=== PATIENT | female | born 1950 | race Caucasian/White ===

== ENCOUNTER 2018-08-22 07:16 | Day surgery (SDC) | payer OTHER ==
[~2018-08-22] VITALS: Ht 165.1 cm; Wt 85.9 kg
[~2018-08-22 07:16] MED LIST: AEC81 PO; LEVO112T4 PO; LISI1TAB11 PO; MULT-1203 PO; MV-M1TAB20 PO; SODIUM CHLORIDE 0.9% 1000ML 1,000 ML IV ONE
[2018-08-22 08:16] VITALS: BP 132/73
[2018-08-22] MEDS ORDERED: LIDOCAINE HCL 1% 20 ML VIAL ONE (09:29)
[2018-08-22] MEDS ORDERED: PROPOFOL 10 MG/ML 20ML VIAL IV ONE (09:30)
[2018-08-22 09:44] VITALS: BP 105/60
[2018-08-22 09:49] VITALS: BP 114/62
[2018-08-22 09:54] VITALS: BP 112/53
[2018-08-22 09:59] VITALS: BP 123/63
== END 2018-08-22 10:17 | disposition home or self-care (01) ==
LOC: DAH 07:16 → ENDO 07:16
PROVIDERS: ATTEND Internal Medicine Gastroenterology
DX: K29.50 Unspecified chronic gastritis without bleeding (principal); K21.0 Gastro-esophageal reflux disease with esophagitis; K44.9 Diaphragmatic hernia without obstruction or gangrene; K31.89 Other diseases of stomach and duodenum; I10 Essential (primary) hypertension; E03.9 Hypothyroidism, unspecified; D64.9 Anemia, unspecified; Z90.49 Acquired absence of other specified parts of digestive tract; Z98.890 Other specified postprocedural states; Z79.899 Other long term (current) drug therapy; Z68.32 Body mass index [BMI] 32.0-32.9, adult; K57.30 Diverticulosis of large intestine without perforation or abscess without bleeding; K64.0 First degree hemorrhoids; E66.01 Morbid (severe) obesity due to excess calories
CPT/HCPCS: 43239; 43249; 88305; A4606; J2704; J7030; 43235

== ENCOUNTER 2020-11-07 10:26 | Observation (INO) | payer OTHER ==
[~2020-11-07 10:26] MED LIST changes: -LISI1TAB11 PO; +LISI1TAB51 PO; -SODIUM CHLORIDE 0.9% 1000ML 1,000 ML IV ONE
[2020-11-07 11:17] LABS: BASOPHILS % (AUTO) 0.2 % (0.0-5.0); EOSINOPHILS % (AUTO) 0.9 % (0.0-8.0); HEMATOCRIT 38.2 % (36-48); LYMPHOCYTES % (AUTO) 18.6 % (21.0-51.0); MEAN CORPUSCULAR HEMOGLOBIN 25.4 pg (27.0-33.0); MEAN CORPUSCULAR HGB CONC 32.5 g/dL (32.0-36.0); MEAN CORPUSCULAR VOLUME 78.3 fL (79-99); MONOCYTES % (AUTO) 9.5 % (3.0-13.0); NEUTROPHILS % (AUTO) 70.6 % (40.0-77.0); PLATELET COUNT (AUTO) 264 K/uL (130-400); RED BLOOD CELL COUNT(AUTO) 4.88 MIL/uL (4.00-5.50); WHITE BLOOD COUNT (AUTO) 5.6 K/uL (4.8-10.8)
[2020-11-07 11:35] LABS: ALBUMIN 3.3 g/dL (3.5-5.0); BILIRUBIN,TOTAL 0.5 mg/dL (0.2-1.0); CREATININE 1.2 mg/dL (0.5-1.5); POTASSIUM 3.3 mmol/L (3.5-5.1); TOTAL PROTEIN, SERUM 7.4 g/dL (6.0-8.3)
[2020-11-07] MEDS ORDERED: DEXAMETHASONE SOD PHOSPHATE 10MG/ML 1ML VIAL ONE (12:14)
[2020-11-07 12:43] LABS: ABG BASE EXCESS 2.1 mmol/L (-2.0-3.0); ABG HCO3 26.1 mmol/L (21.0-28.0); ABG OXYGEN SATURATION 95.7 % (95.0-99.0); ABG PCO2 39 mmHg (32-45)
[2020-11-07] MEDS ORDERED: POTASSIUM CHLORIDE 20 MEQ ERTAB PO ONE (12:53)
[2020-11-07 13:23] LABS: CRP QUANTITATIVE 11.2 mg/L (0.00-9.0); MAGNESIUM 1.9 mg/dL (1.80-2.40)
[2020-11-07] MEDS ORDERED: GUAIFENESIN-DM 200/20 MG 10 ML PO PRN (13:30)
[2020-11-07] MEDS ORDERED: CEFTRIAXONE SODIUM 1 GM IVP SCH (13:30)
[2020-11-07] MEDS ORDERED: ERGOCALCIFEROL (VITAMIN D2) 50,000 UNIT CAPSULE PO SCH (13:30)
[2020-11-07] MEDS ORDERED: MAG HYDROX/AL HYDROX/SIMETH ES 30 ML SUSP UDCUP PO PRN (13:30)
[2020-11-07] MEDS ORDERED: POTASSIUM CHLORIDE 20 MEQ ERTAB PO SCH (13:30)
[2020-11-07] MEDS ORDERED: ONDANSETRON HCL 4 MG/2 ML VIAL IV PRN (13:30)
[2020-11-07] MEDS ORDERED: ERGOCALCIFEROL (VITAMIN D2) 50,000 UNIT CAPSULE ONE (14:12)
[2020-11-07] MEDS ORDERED: CEFTRIAXONE SODIUM 1 GM ONE (14:12)
[2020-11-07] MEDS ORDERED: PANT40TA55 PO (16:51)
[2020-11-07] MEDS ORDERED: APIX2.5T PO (16:51)
[2020-11-07] MEDS ORDERED: FAMOTIDINE 20MG TAB 20 MG TAB PO SCH (21:00)
[2020-11-07] MEDS ORDERED: DOXYCYCLINE HYCLATE 100 MG TABLET PO SCH (21:00)
[2020-11-08] MEDS ORDERED: LEVOTHYROXINE 112 MCG TABLET PO SCH (06:30)
[2020-11-08] MEDS ORDERED: ZINC SULFATE 220 CAPSULE PO SCH (09:00)
[2020-11-08] MEDS ORDERED: DEXAMETHASONE SOD PHOSPHATE 4 MG/ML 1ML VIAL IVP SCH (09:00)
[2020-11-08] MEDS ORDERED: EZETIMIBE 10 MG TAB PO SCH (09:00)
[2020-11-08] MEDS ORDERED: ASCORBIC ACID 500 MG TAB PO SCH (09:00)
[2020-11-08] MEDS ORDERED: ENOXAPARIN SODIUM 40 MG/0.4 ML SYRINGE SQ SCH (16:00)
== END 2020-11-07 17:22 | disposition home or self-care (01) ==
LOC: EDH 10:26 → EDHIP 12:46
PROVIDERS: ADMIT Internal Medicine; ATTEND Internal Medicine
DX: U07.1 COVID-19 (principal); J96.01 Acute respiratory failure with hypoxia; K52.9 Noninfective gastroenteritis and colitis, unspecified; D68.59 Other primary thrombophilia; I10 Essential (primary) hypertension; E78.5 Hyperlipidemia, unspecified; E03.9 Hypothyroidism, unspecified; E66.9 Obesity, unspecified; F32.9 Major depressive disorder, single episode, unspecified; Z87.891 Personal history of nicotine dependence; Z79.82 Long term (current) use of aspirin; Z90.49 Acquired absence of other specified parts of digestive tract; Z79.899 Other long term (current) drug therapy; Z88.8 Allergy status to other drugs, medicaments and biological substances
CPT/HCPCS: 36600; 71045; 82550; 82728; 82803; 83615; 83735; 84145; 85378; 86140; 86850; 86900; 86901; 87426; 93005; 93970; 99285; G0378 ×5; J0696; J1100

== ENCOUNTER → 2021-05-07 | Outpatient (CLI) | payer OTHER ==
[~2021-05-07] MED LIST changes: +APIX2.5T PO; +PANT40TA55 PO
== END | disposition home or self-care (01) ==
LOC: RAH 15:18
PROVIDERS: ATTEND Internal Medicine
DX: M19.041 Primary osteoarthritis, right hand (principal); M19.042 Primary osteoarthritis, left hand

== ENCOUNTER 2021-05-12 21:39 | Emergency (ER) | payer OTHER ==
[~2021-05-12] VITALS: Ht 165.1 cm; Wt 98.4 kg
[2021-05-12 22:36] VITALS: BP 125/73
[2021-05-12] MEDS ORDERED: METOCLOPRAMIDE 10 MG/2 ML VIAL IVP ONE (23:00)
[2021-05-12] MEDS ORDERED: FAMOTIDINE 20MG VIAL IV ONE ×2 (23:00→23:04)
[2021-05-12] MEDS ORDERED: 0.9%NACL 1000ML 1,000 ML IV ONE ×2 (23:00→23:07)
[2021-05-12] MEDS ORDERED: PANTOPRAZOLE 40 MG/VIAL IVP ONE (23:00)
[2021-05-12] MEDS ORDERED: ONDANSETRON 4MG INJ IVP ONE (23:00)
[2021-05-12 23:03] LABS: BASOPHILS % (AUTO) 0.2 % (0.0-5.0); LYMPHOCYTES % (AUTO) 6.2 % (21.0-51.0); MEAN CORPUSCULAR HEMOGLOBIN 24.6 pg (27.0-33.0); MEAN CORPUSCULAR HGB CONC 31.6 g/dL (32.0-36.0); MONOCYTES % (AUTO) 4.6 % (3.0-13.0); NEUTROPHILS % (AUTO) 88.6 % (40.0-77.0); PLATELET COUNT (AUTO) 338 K/uL (130-400); RED BLOOD CELL COUNT(AUTO) 4.87 MIL/uL (4.00-5.50); RED CELL DISTRIBUTION WIDTH 15.9 % (11.0-15.5); WHITE BLOOD COUNT (AUTO) 10.8 K/uL (4.8-10.8)
[2021-05-12] MEDS ORDERED: ONDANSETRON 4MG INJ ONE (23:03)
[2021-05-12] MEDS ORDERED: METOCLOPRAMIDE 10 MG/2 ML VIAL ONE (23:03)
[2021-05-12] MEDS ORDERED: PANTOPRAZOLE 40 MG/VIAL ONE (23:04)
[2021-05-12 23:25] LABS: POTASSIUM 3.6 mmol/L (3.5-5.1)
[2021-05-12 23:29] LABS: ALBUMIN 3.6 g/dL (3.5-5.0); BILIRUBIN,TOTAL 0.8 mg/dL (0.2-1.0); TOTAL PROTEIN, SERUM 7.8 g/dL (6.0-8.3)
[2021-05-12 23:40] VITALS: BP 129/49
[2021-05-13 00:48] LABS: APPEARANCE,URINE Clear (CLEAR); BILIRUBIN,URINE Negative (NEGATIVE); COLOR,URINE Yellow (YELLOW); GLUCOSE, URINE (UA) Negative (NEGATIVE); KETONES,URINE Negative (NEGATIVE); LEUKOCYTE ESTERASE ,URINE Small (NEGATIVE); NITRATE,URINE Negative (NEGATIVE); OCCULT BLOOD,URINE Negative (NEGATIVE); PROTEIN,URINE Negative (NEGATIVE)
[2021-05-13] MEDS ORDERED: DICY20TA2 PO (00:50)
[2021-05-13] MEDS ORDERED: METO-296 PO (00:50)
[2021-05-13] MEDS ORDERED: PANT40TA54 PO (00:50)
[2021-05-13] MEDS ORDERED: ONDA4TAB10 PO (00:50)
[2021-05-13 00:52] VITALS: BP 126/52
[2021-05-13 01:04] LABS: BACTERIA,URINE Few /HPF (None Seen); MUCUS,URINE Rare LPF (None Seen); RBC,URINE 0-1 /HPF (0-1)
== END 2021-05-13 01:05 | disposition home or self-care (01) ==
LOC: EDH 21:39
DX: E86.9 Volume depletion, unspecified (principal); R19.7 Diarrhea, unspecified; R11.10 Vomiting, unspecified; Z79.82 Long term (current) use of aspirin; Z79.01 Long term (current) use of anticoagulants; Z79.899 Other long term (current) drug therapy; Z88.5 Allergy status to narcotic agent; Z88.8 Allergy status to other drugs, medicaments and biological substances
CPT/HCPCS: 36415; 80053; 81001; 83690; 84484; 85025; 96361; 96374; 96375; 99284; C9113; J2405; J2765; J3490; J7030

== ENCOUNTER 2022-12-13 10:26 | Emergency (ER) | payer OTHER ==
[~2022-12-13] VITALS: Ht 167.6 cm; Wt 99.8 kg
[~2022-12-13 10:26] MED LIST changes: +DICY20TA2 PO; +METO-296 PO; +ONDA4TAB10 PO; +PANT40TA54 PO
[2022-12-13 11:16] VITALS: BP 151/77
[2022-12-13 11:16] LABS: BASOPHILS % (AUTO) 0.3 % (0.0-5.0); EOSINOPHILS % (AUTO) 0.5 % (0.0-8.0); HEMATOCRIT 37.7 % (36-48); LYMPHOCYTES % (AUTO) 11.6 % (21.0-51.0); MEAN CORPUSCULAR HEMOGLOBIN 25.9 pg (27.0-33.0); MEAN CORPUSCULAR HGB CONC 32.6 g/dL (32.0-36.0); MEAN CORPUSCULAR VOLUME 79.4 fL (79-99); MONOCYTES % (AUTO) 10.4 % (3.0-13.0); NEUTROPHILS % (AUTO) 76.5 % (40.0-77.0); PLATELET COUNT (AUTO) 282 K/uL (130-400); RED BLOOD CELL COUNT(AUTO) 4.75 MIL/uL (4.00-5.50); RED CELL DISTRIBUTION WIDTH 15.7 % (11.0-15.5)
[2022-12-13 11:25] LABS: CREATININE 1.2 mg/dL (0.5-1.5); POTASSIUM 3.2 mmol/L (3.5-5.1)
[2022-12-13 11:30] LABS: ALBUMIN 3.5 g/dL (3.5-5.0); TOTAL PROTEIN, SERUM 7.3 g/dL (6.0-8.3)
[2022-12-13] MEDS ORDERED: ONDANSETRON 4MG INJ ONE (11:46)
[2022-12-13] MEDS ORDERED: DIPHENOXYLATE HCL/ATROPINE 2.5/0.025 MG TAB PO ONE ×2 (11:46→12:00)
[2022-12-13] MEDS ORDERED: ONDANSETRON 4MG INJ IVP ONE (12:00)
[2022-12-13] MEDS ORDERED: 0.9%NACL 1000ML 2,500 ML IV ONE ×2 (12:00)
[2022-12-13 12:09] LABS: ABG BASE EXCESS -0.4 mmol/L (-2.0-3.0); ABG HCO3 23.5 mmol/L (21.0-28.0); ABG PCO2 36 mmHg (32-45)
[2022-12-13] MEDS ORDERED: DIPH1TAB PO (12:54)
[2022-12-13] MEDS ORDERED: ONDA-104 PO (12:54)
== END 2022-12-13 13:53 | disposition home or self-care (01) ==
LOC: EDH 10:26
DX: K52.9 Noninfective gastroenteritis and colitis, unspecified (principal); E78.00 Pure hypercholesterolemia, unspecified; I10 Essential (primary) hypertension; E03.9 Hypothyroidism, unspecified; Z90.49 Acquired absence of other specified parts of digestive tract; Z79.01 Long term (current) use of anticoagulants; Z79.82 Long term (current) use of aspirin; Z79.899 Other long term (current) drug therapy; Z88.5 Allergy status to narcotic agent; Z20.822 Contact with and (suspected) exposure to COVID-19; Z88.8 Allergy status to other drugs, medicaments and biological substances
CPT/HCPCS: 99285; 96360; 71045; 96361; 87635; 84484; 80053; 82803; 83690; 85025; 87804 ×2; 83605; 36415; 93005; C9803; J7030; 96374; J2405; J7040

== ENCOUNTER 2023-03-03 13:30 | Emergency (ER) | payer OTHER ==
[~2023-03-03] VITALS: Ht 167.6 cm; Wt 90.7 kg
[~2023-03-03 13:30] MED LIST changes: +DIPH1TAB PO; +ONDA-104 PO
[2023-03-03] MEDS ORDERED: ACETAMINOPHEN 500 MG TABLET ONE (14:08)
[2023-03-03] MEDS ORDERED: ACETAMINOPHEN 500 MG TABLET PO ONE (14:30)
[2023-03-03 16:08] LABS: BASOPHILS % (AUTO) 0.3 % (0.0-5.0); EOSINOPHILS % (AUTO) 0.3 % (0.0-8.0); HEMATOCRIT 35.7 % (36-48); LYMPHOCYTES % (AUTO) 10.2 % (21.0-51.0); MEAN CORPUSCULAR HEMOGLOBIN 25.7 pg (27.0-33.0); MEAN CORPUSCULAR HGB CONC 31.9 g/dL (32.0-36.0); MEAN CORPUSCULAR VOLUME 80.6 fL (79-99); MONOCYTES % (AUTO) 6.5 % (3.0-13.0); NEUTROPHILS % (AUTO) 82.4 % (40.0-77.0); PLATELET COUNT (AUTO) 269 K/uL (130-400); RED BLOOD CELL COUNT(AUTO) 4.43 MIL/uL (4.00-5.50); RED CELL DISTRIBUTION WIDTH 14.9 % (11.0-15.5); WHITE BLOOD COUNT (AUTO) 7.6 K/uL (4.8-10.8)
[2023-03-03 16:23] LABS: INR 0.93 (0.85-1.15); PROTHROMBIN TIME 9.7 SEC (9.6-11.6)
[2023-03-03 16:24] LABS: CARBON DIOXIDE 32 mmol/L (21-32); CHLORIDE 102 mmol/L (101-111); CREATININE 0.9 mg/dL (0.5-1.5); GLOMERULAR FILTR. RATE CALC 68 mL/min (>90); GLUCOSE,RANDOM 111 mg/dL (70-105); SODIUM SERUM 140 mmol/L (136-145); UREA NITROGEN, BLOOD 13 mg/dL (7-18)
[2023-03-03 16:28] LABS: ALANINE AMINOTRANSFERASE 19 U/L (12-78); ALBUMIN 3.6 g/dL (3.5-5.0); ASPARTATE AMINOTRANSFERASE 14 U/L (10-37); TOTAL PROTEIN, SERUM 7.1 g/dL (6.0-8.3)
[2023-03-03 17:17] VITALS: BP 160/92
== END 2023-03-03 17:44 | disposition home or self-care (01) ==
LOC: EDH 13:30
DX: S93.402A Sprain of unspecified ligament of left ankle, initial encounter (principal); S80.01XA Contusion of right knee, initial encounter; E78.00 Pure hypercholesterolemia, unspecified; I10 Essential (primary) hypertension; E03.9 Hypothyroidism, unspecified; Z79.01 Long term (current) use of anticoagulants; Z79.82 Long term (current) use of aspirin; Z79.899 Other long term (current) drug therapy; Z88.5 Allergy status to narcotic agent; Z88.8 Allergy status to other drugs, medicaments and biological substances; W01.10XA Fall on same level from slipping, tripping and stumbling with subsequent striking against unspecified object, initial encounter; Y92.89 Other specified places as the place of occurrence of the external cause; Y93.01 Activity, walking, marching and hiking; Y99.8 Other external cause status
CPT/HCPCS: 36415; 71100; 73562; 73610; 74176; 80053; 85025; 85610; 85730; 93005

== ENCOUNTER → 2023-04-28 | Outpatient (CLI) | payer OTHER ==
[~2023-04-28] MED LIST changes: +IOHEXOL 350 MG/ML 100ML INFUS..BTL IV ONE; +IOHEXOL-350 75 ML VIAL IV ONE
== END | disposition home or self-care (01) ==
LOC: RAH 12:20
PROVIDERS: ATTEND Internal Medicine Cardiovascular Disease
DX: R79.1 Abnormal coagulation profile (principal)
CPT/HCPCS: 71270; Q9967 ×2

== ENCOUNTER → 2023-05-16 | Outpatient (CLI) | payer OTHER ==
[~2023-05-16] MED LIST changes: -IOHEXOL-350 75 ML VIAL IV ONE
== END | disposition home or self-care (01) ==
LOC: RAH 07:52
PROVIDERS: ATTEND Internal Medicine Cardiovascular Disease
DX: I20.9 Angina pectoris, unspecified (principal)
CPT/HCPCS: 75574; Q9967

== ENCOUNTER 2023-08-29 10:42 | Emergency (ER) | payer OTHER ==
[~2023-08-29] VITALS: Ht 170.2 cm; Wt 81.6 kg
[~2023-08-29 10:42] MED LIST changes: -IOHEXOL 350 MG/ML 100ML INFUS..BTL IV ONE
[2023-08-29] MEDS ORDERED: DEXAMETHASONE SOD PHOSPHATE 4 MG/ML 1ML VIAL IV ONE (13:00)
[2023-08-29] MEDS ORDERED: ONDANSETRON 4MG INJ IVP ONE (13:00)
[2023-08-29] MEDS ORDERED: CYCLOBENZAPRINE HCL 10 MG TABLET PO ONE (13:00)
[2023-08-29] MEDS ORDERED: KETOROLAC 15MG/ML VIAL (15MG/ML) IV ONE (13:00)
[2023-08-29] MEDS ORDERED: CYCL-309 PO (15:31)
[2023-08-29] MEDS ORDERED: METH4TAB3 PO (15:31)
[2023-08-29 15:45] VITALS: BP 159/98; PULSE 82; RESP 17; O2SAT 100
== END 2023-08-29 15:46 | disposition home or self-care (01) ==
LOC: EDH 10:42
DX: G89.29 Other chronic pain (principal); M54.42 Lumbago with sciatica, left side; I10 Essential (primary) hypertension; E03.9 Hypothyroidism, unspecified; Z79.82 Long term (current) use of aspirin; Z79.899 Other long term (current) drug therapy; Z98.890 Other specified postprocedural states; Z88.5 Allergy status to narcotic agent; Z88.8 Allergy status to other drugs, medicaments and biological substances
CPT/HCPCS: 99284; 96374; 96375; J1100; J2405; J1885

== ENCOUNTER 2023-09-21 02:58 | Inpatient (IN) | payer OTHER ==
[2023-09-21] VITALS (11 sets, daily range): BP systolic 142–170; BP diastolic 67–92; PULSE 84–102; RESP 18–22; TEMP 99.2; O2SAT 92–97
[~2023-09-21] VITALS: Ht 162.6 cm; Wt 101.7 kg
[~2023-09-21 02:58] MED LIST changes: +CYCL-309 PO; +METH4TAB3 PO
[2023-09-21 03:30] LABS: BASOPHILS # (AUTO) 0.03 K/uL (0.00-0.20); BASOPHILS % (AUTO) 0.5 % (0.0-5.0); EOSINOPHILS # (AUTO) 0.06 K/uL (0.00-0.70); HEMATOCRIT 36.2 % (36-48); IMMATURE GRANULOCYTE ABSOLUTE 0.02 K/uL (0-1); LYMPHOCYTES # (AUTO) 0.9 K/uL (1.0-4.8); MEAN CORPUSCULAR HEMOGLOBIN 27.1 pg (27.0-33.0); MEAN CORPUSCULAR HGB CONC 32.9 g/dL (32.0-36.0); MEAN CORPUSCULAR VOLUME 82.5 fL (79-99); MONOCYTES # (AUTO) 0.7 K/uL (0.1-1.0); MONOCYTES % (AUTO) 11.6 % (3.0-13.0); NEUTROPHILS # (AUTO) 4.5 K/uL (1.8-7.7); NEUTROPHILS % (AUTO) 72.6 % (40.0-77.0); PLATELET COUNT (AUTO) 231 K/uL (130-400); RED BLOOD CELL COUNT(AUTO) 4.39 MIL/uL (4.00-5.50); RED CELL DISTRIBUTION WIDTH 15.2 % (11.0-15.5); WHITE BLOOD COUNT (AUTO) 6.1 K/uL (4.8-10.8)
[2023-09-21] MEDS ORDERED: NITROGLYCERIN 1GM OINT 1 INCH/1GM TD ONE (03:30)
[2023-09-21] MEDS ORDERED: IPRATROPIUM/ALBUTEROL SULFATE 3 ML SOLUTION IH ONE (03:30)
[2023-09-21 03:38] LABS: SARS-CoV-2, RNA, NAAT POSITIVE SARS CoV-2 (NEGATIVE)
[2023-09-21 03:39] LABS: CREATININE 0.9 mg/dL (0.5-1.5); POTASSIUM 3.4 mmol/L (3.5-5.1)
[2023-09-21 03:43] LABS: ALBUMIN 3.4 g/dL (3.5-5.0); BILIRUBIN,TOTAL 0.5 mg/dL (0.2-1.0); MAGNESIUM 1.8 mg/dL (1.80-2.40)
[2023-09-21 03:46] LABS: INFLUENZA TYPE A Negative For Type A (NEGATIVE); INFLUENZA TYPE B Negative For Type B (NEGATIVE)
[2023-09-21 03:52] LABS: ABG BASE EXCESS 0.1 mmol/L (-2.0-3.0); ABG HCO3 21.9 mmol/L (21.0-28.0); ABG OXYGEN SATURATION 93.8 % (95.0-99.0); ABG PCO2 28 mmHg (32-45); ABG PH 7.505 (7.35-7.450); PO2, ARTERIAL BG 61.2 mmHg (83.0-108.0); VENT MODE, BG RA (ROOM AIR)
[2023-09-21] MEDS ORDERED: FAMOTIDINE 20MG TAB ONE (05:07)
[2023-09-21] MEDS ORDERED: ONDANSETRON 4MG INJ IV PRN (05:30)
[2023-09-21] MEDS ORDERED: ACETAMINOPHEN 325 MG TAB PO PRN (05:30)
[2023-09-21] MEDS ORDERED: KETOROLAC 15MG/ML VIAL (15MG/ML) IV PRN (06:00)
[2023-09-21] MEDS: NITROGLYCERIN 1GM OINT 1 INCH/1GM TD SCH ×3 (06:00→20:22)
[2023-09-21] MEDS: IPRATROPIUM/ALBUTEROL SULFATE 3 ML SOLUTION IH SCH ×2 (06:13→12:01)
[2023-09-21] MEDS: ACETAMINOPHEN 325 MG TAB PO PRN (06:15)
[2023-09-21] MEDS ORDERED: MAGNESIUM 2GM PREMIX 50ML 50 ML IV PRN (06:30)
[2023-09-21] MEDS ORDERED: POTASSIUM CHLORIDE 20MEQ/100ML 100 ML IV PRN (06:30)
[2023-09-21] MEDS: POTASSIUM CHLORIDE 10% ELIXIR 20 MEQ/15 ML UDCUP PO PRN (06:51)
[2023-09-21] MEDS: FAMOTIDINE 20MG TAB PO SCH ×2 (09:00→19:52)
[2023-09-21] MEDS: ASPIRIN 81 MG EC TAB PO SCH (09:21)
[2023-09-21] MEDS: DEXAMETHASONE SOD PHOSPHATE 4 MG/ML 1ML VIAL IVP SCH (14:23)
[2023-09-21] MEDS ORDERED: ENOXAPARIN SODIUM 40 MG/0.4 ML SYRINGE SQ SCH (14:30)
[2023-09-21] MEDS ORDERED: IOHEXOL-350 75 ML VIAL IV ONE (15:55)
[2023-09-21] MEDS ORDERED: ENOXAPARIN SODIUM 40 MG/0.4 ML SYRINGE SQ ONE (18:30)
[2023-09-21] MEDS ORDERED: LEVO150 PO (23:40)
[2023-09-21] MEDS ORDERED: AMLO-258 PO (23:42)
[2023-09-21] MEDS ORDERED: ISOS20TA85 PO (23:43)
[2023-09-21] MEDS ORDERED: ESOM40CA54 PO (23:44)
[2023-09-21] MEDS ORDERED: IRBE300T18 PO (23:44)
[2023-09-21] MEDS ORDERED: CELE-125 PO (23:48)
[2023-09-21] MEDS ORDERED: HYDR200T75 PO (23:49)
[2023-09-22] VITALS (11 sets, daily range): BP systolic 133–165; BP diastolic 63–106; PULSE 77–100; RESP 16–20; O2SAT 92–96
[2023-09-22 05:32] LABS: BASOPHILS # (AUTO) 0.01 K/uL (0.00-0.20); BASOPHILS % (AUTO) 0.2 % (0.0-5.0); HEMATOCRIT 34.7 % (36-48); IMMATURE GRANULOCYTE ABSOLUTE 0.03 K/uL (0-1); LYMPHOCYTES # (AUTO) 0.6 K/uL (1.0-4.8); LYMPHOCYTES % (AUTO) 10.9 % (21.0-51.0); MEAN CORPUSCULAR HEMOGLOBIN 27.3 pg (27.0-33.0); MEAN CORPUSCULAR HGB CONC 33.1 g/dL (32.0-36.0); MEAN CORPUSCULAR VOLUME 82.2 fL (79-99); MONOCYTES # (AUTO) 0.6 K/uL (0.1-1.0); MONOCYTES % (AUTO) 10.1 % (3.0-13.0); NEUTROPHILS # (AUTO) 4.2 K/uL (1.8-7.7); NEUTROPHILS % (AUTO) 78.2 % (40.0-77.0); PLATELET COUNT (AUTO) 218 K/uL (130-400); RED BLOOD CELL COUNT(AUTO) 4.22 MIL/uL (4.00-5.50); RED CELL DISTRIBUTION WIDTH 15.1 % (11.0-15.5); WHITE BLOOD COUNT (AUTO) 5.4 K/uL (4.8-10.8)
[2023-09-22 05:43] LABS: HEMOGLOBIN A1C 5.5 % (4.0-6.0)
[2023-09-22 05:55] LABS: ALBUMIN 3.1 g/dL (3.5-5.0); BILIRUBIN,TOTAL 0.4 mg/dL (0.2-1.0); CREATININE 0.8 mg/dL (0.5-1.5); POTASSIUM 3.8 mmol/L (3.5-5.1); THYROID STIMULATING HORMONE 5.95 uIU/mL (0.36-3.74); TOTAL PROTEIN, SERUM 6.8 g/dL (6.0-8.3)
[2023-09-22] MEDS: NITROGLYCERIN 1GM OINT 1 INCH/1GM TD SCH ×3 (06:00→20:50)
[2023-09-22] MEDS ORDERED: ENOXAPARIN SODIUM 100 MG/1 ML SQ SCH (06:00)
[2023-09-22] MEDS ORDERED: CARV12.580 PO (06:17)
[2023-09-22] MEDS: LEVOTHYROXINE 150 MCG TABLET PO SCH (07:30)
[2023-09-22] MEDS: FAMOTIDINE 20MG TAB PO SCH ×2 (08:06→20:48)
[2023-09-22] MEDS: HYDROXYCHLOROQUINE SULFATE 200 MG TAB PO SCH ×2 (08:06→20:48)
[2023-09-22] MEDS: ISOSORBIDE MONONITRATE 20 MG TABLET PO SCH (08:06)
[2023-09-22] MEDS: AMLODIPINE 5 MG TAB PO SCH (08:06)
[2023-09-22] MEDS: ASPIRIN 81 MG EC TAB PO SCH (08:06)
[2023-09-22] MEDS: CARVEDILOL 12.5 MG TABLET PO SCH ×2 (08:06→20:48)
[2023-09-22] MEDS: DEXAMETHASONE SOD PHOSPHATE 4 MG/ML 1ML VIAL IVP SCH (08:07)
[2023-09-22] MEDS: Irbesartan 300 MG PO SCH (08:21)
[2023-09-22] MEDS ORDERED: HYDRALAZINE 20MG/ML VIAL IV PRN (12:00)
[2023-09-22] MEDS: APIXABAN 5 MG TABLET PO SCH (20:50)
[2023-09-23] VITALS (11 sets, daily range): BP systolic 121–159; BP diastolic 63–83; PULSE 62–93; RESP 18–20; O2SAT 87–97
[2023-09-23 05:03] LABS: BASOPHILS # (AUTO) 0.02 K/uL (0.00-0.20); BASOPHILS % (AUTO) 0.3 % (0.0-5.0); HEMATOCRIT 33.3 % (36-48); IMMATURE GRANULOCYTE ABSOLUTE 0.02 K/uL (0-1); LYMPHOCYTES # (AUTO) 1.2 K/uL (1.0-4.8); MEAN CORPUSCULAR HEMOGLOBIN 26.5 pg (27.0-33.0); MEAN CORPUSCULAR HGB CONC 31.5 g/dL (32.0-36.0); MEAN CORPUSCULAR VOLUME 84.1 fL (79-99); MONOCYTES # (AUTO) 0.8 K/uL (0.1-1.0); MONOCYTES % (AUTO) 11.8 % (3.0-13.0); NEUTROPHILS % (AUTO) 70.6 % (40.0-77.0); PLATELET COUNT (AUTO) 239 K/uL (130-400); RED BLOOD CELL COUNT(AUTO) 3.96 MIL/uL (4.00-5.50); RED CELL DISTRIBUTION WIDTH 14.9 % (11.0-15.5); WHITE BLOOD COUNT (AUTO) 7.1 K/uL (4.8-10.8)
[2023-09-23 05:14] LABS: CREATININE 0.8 mg/dL (0.5-1.5); MAGNESIUM 2.1 mg/dL (1.80-2.40); PHOSPHORUS 3.6 mg/dL (2.5-4.9); POTASSIUM 3.3 mmol/L (3.5-5.1)
[2023-09-23] MEDS: LEVOTHYROXINE 150 MCG TABLET PO SCH (05:30)
[2023-09-23] MEDS: NITROGLYCERIN 1GM OINT 1 INCH/1GM TD SCH ×3 (05:36→21:35)
[2023-09-23] MEDS: KCL 20 MEQ ERTAB PO PRN (06:10)
[2023-09-23] MEDS: Irbesartan 300 MG PO SCH (09:00)
[2023-09-23] MEDS: DEXAMETHASONE SOD PHOSPHATE 4 MG/ML 1ML VIAL IVP SCH (09:23)
[2023-09-23] MEDS: CARVEDILOL 12.5 MG TABLET PO SCH ×2 (09:25→21:11)
[2023-09-23] MEDS: ISOSORBIDE MONONITRATE 20 MG TABLET PO SCH (09:26)
[2023-09-23] MEDS: ASPIRIN 81 MG EC TAB PO SCH (09:26)
[2023-09-23] MEDS: APIXABAN 5 MG TABLET PO SCH ×2 (09:26→21:12)
[2023-09-23] MEDS: AMLODIPINE 5 MG TAB PO SCH (09:27)
[2023-09-23] MEDS: FAMOTIDINE 20MG TAB PO SCH ×2 (09:27→21:10)
[2023-09-23] MEDS: HYDROXYCHLOROQUINE SULFATE 200 MG TAB PO SCH ×2 (09:27→21:11)
[2023-09-23] MEDS: ACETAMINOPHEN 325 MG TAB PO PRN (09:53)
[2023-09-24] VITALS (12 sets, daily range): BP systolic 110–150; BP diastolic 55–74; PULSE 60–82; RESP 17–22; O2SAT 94–98
[2023-09-24 05:05] LABS: BASOPHILS # (AUTO) 0.02 K/uL (0.00-0.20); BASOPHILS % (AUTO) 0.4 % (0.0-5.0); EOSINOPHILS # (AUTO) 0.06 K/uL (0.00-0.70); EOSINOPHILS % (AUTO) 1.1 % (0.0-8.0); HEMATOCRIT 33.2 % (36-48); IMMATURE GRANULOCYTE ABSOLUTE 0.02 K/uL (0-1); LYMPHOCYTES # (AUTO) 1.5 K/uL (1.0-4.8); LYMPHOCYTES % (AUTO) 28.9 % (21.0-51.0); MEAN CORPUSCULAR HGB CONC 32.2 g/dL (32.0-36.0); MEAN CORPUSCULAR VOLUME 83.6 fL (79-99); MONOCYTES # (AUTO) 0.7 K/uL (0.1-1.0); MONOCYTES % (AUTO) 12.2 % (3.0-13.0); PLATELET COUNT (AUTO) 222 K/uL (130-400); RED BLOOD CELL COUNT(AUTO) 3.97 MIL/uL (4.00-5.50); RED CELL DISTRIBUTION WIDTH 15.1 % (11.0-15.5); WHITE BLOOD COUNT (AUTO) 5.3 K/uL (4.8-10.8)
[2023-09-24 05:15] LABS: CREATININE 0.8 mg/dL (0.5-1.5); POTASSIUM 3.2 mmol/L (3.5-5.1)
[2023-09-24] MEDS: NITROGLYCERIN 1GM OINT 1 INCH/1GM TD SCH (06:07)
[2023-09-24] MEDS: LEVOTHYROXINE 150 MCG TABLET PO SCH (06:07)
[2023-09-24] MEDS: KCL 20 MEQ ERTAB PO PRN ×2 (06:07→21:14)
[2023-09-24] MEDS: ISOSORBIDE MONONITRATE 20 MG TABLET PO SCH (08:28)
[2023-09-24] MEDS: HYDROXYCHLOROQUINE SULFATE 200 MG TAB PO SCH ×2 (08:29→21:14)
[2023-09-24] MEDS: ASPIRIN 81 MG EC TAB PO SCH (08:29)
[2023-09-24] MEDS: AMLODIPINE 5 MG TAB PO SCH (08:29)
[2023-09-24] MEDS: FAMOTIDINE 20MG TAB PO SCH ×2 (08:29→21:14)
[2023-09-24] MEDS: APIXABAN 5 MG TABLET PO SCH ×2 (08:29→21:15)
[2023-09-24] MEDS: Irbesartan 300 MG PO SCH (08:30)
[2023-09-24] MEDS: DEXAMETHASONE SOD PHOSPHATE 4 MG/ML 1ML VIAL IVP SCH (08:30)
[2023-09-24] MEDS: CARVEDILOL 12.5 MG TABLET PO SCH ×2 (08:30→21:14)
[2023-09-24] MEDS: POTASSIUM CHLORIDE 10% ELIXIR 20 MEQ/15 ML UDCUP PO PRN (08:34)
[2023-09-24 14:43] LABS: ABG BASE EXCESS 0.3 mmol/L (-2.0-3.0); ABG HCO3 24.4 mmol/L (21.0-28.0); ABG OXYGEN SATURATION 98.6 % (95.0-99.0); ABG PCO2 38 mmHg (32-45); ABG PH 7.425 (7.35-7.450); PO2, ARTERIAL BG 126.6 mmHg (83.0-108.0); VENT MODE, BG NC (ROOM AIR)
[2023-09-25] VITALS (9 sets, daily range): BP systolic 124–148; BP diastolic 60–81; PULSE 64–71; RESP 18–22; O2SAT 95–97
[2023-09-25 05:08] LABS: BASOPHILS # (AUTO) 0.01 K/uL (0.00-0.20); BASOPHILS % (AUTO) 0.2 % (0.0-5.0); IMMATURE GRANULOCYTE ABSOLUTE 0.05 K/uL (0-1); LYMPHOCYTES # (AUTO) 0.9 K/uL (1.0-4.8); LYMPHOCYTES % (AUTO) 15.5 % (21.0-51.0); MEAN CORPUSCULAR HEMOGLOBIN 27.2 pg (27.0-33.0); MEAN CORPUSCULAR HGB CONC 32.7 g/dL (32.0-36.0); MEAN CORPUSCULAR VOLUME 83.1 fL (79-99); MONOCYTES # (AUTO) 0.7 K/uL (0.1-1.0); MONOCYTES % (AUTO) 12.2 % (3.0-13.0); NEUTROPHILS # (AUTO) 4.1 K/uL (1.8-7.7); NEUTROPHILS % (AUTO) 71.2 % (40.0-77.0); PLATELET COUNT (AUTO) 238 K/uL (130-400); RED BLOOD CELL COUNT(AUTO) 3.97 MIL/uL (4.00-5.50); RED CELL DISTRIBUTION WIDTH 14.6 % (11.0-15.5); WHITE BLOOD COUNT (AUTO) 5.7 K/uL (4.8-10.8)
[2023-09-25 05:37] LABS: CREATININE 0.7 mg/dL (0.5-1.5); POTASSIUM 3.9 mmol/L (3.5-5.1)
[2023-09-25] MEDS: LEVOTHYROXINE 150 MCG TABLET PO SCH (06:24)
[2023-09-25] MEDS: Irbesartan 300 MG PO SCH (08:32)
[2023-09-25] MEDS: HYDROXYCHLOROQUINE SULFATE 200 MG TAB PO SCH ×2 (08:34→22:02)
[2023-09-25] MEDS: ISOSORBIDE MONONITRATE 20 MG TABLET PO SCH (08:34)
[2023-09-25] MEDS: AMLODIPINE 5 MG TAB PO SCH (08:35)
[2023-09-25] MEDS: APIXABAN 5 MG TABLET PO SCH ×2 (08:36→22:02)
[2023-09-25] MEDS: ASPIRIN 81 MG EC TAB PO SCH (08:36)
[2023-09-25] MEDS: CARVEDILOL 12.5 MG TABLET PO SCH ×2 (08:36→22:03)
[2023-09-25] MEDS: DEXAMETHASONE SOD PHOSPHATE 4 MG/ML 1ML VIAL IVP SCH (08:36)
[2023-09-25] MEDS: FAMOTIDINE 20MG TAB PO SCH ×2 (08:37→22:00)
[2023-09-25] MEDS ORDERED: DEXA6TAB PO (20:48)
[2023-09-25] MEDS ORDERED: LEVO-70 PO (20:48)
[2023-09-25] MEDS ORDERED: APIX5TAB PO (20:48)
[2023-09-25] MEDS ORDERED: HOME MEDICATION 1 EACH PO SCH (21:00)
[2023-09-25] MEDS: IRBESARTAN 150 MG PO SCH (22:03)
[2023-09-26] VITALS (8 sets, daily range): BP systolic 111–162; BP diastolic 59–99; PULSE 58–97; RESP 18–22; O2SAT 93–97
[2023-09-26] MEDS: LEVOTHYROXINE 150 MCG TABLET PO SCH (07:19)
[2023-09-26] MEDS: AMLODIPINE 5 MG TAB PO SCH (08:29)
[2023-09-26] MEDS: DEXAMETHASONE SOD PHOSPHATE 4 MG/ML 1ML VIAL IVP SCH (08:30)
[2023-09-26] MEDS: ASPIRIN 81 MG EC TAB PO SCH (08:35)
[2023-09-26] MEDS: CARVEDILOL 12.5 MG TABLET PO SCH (08:35)
[2023-09-26] MEDS: HYDROXYCHLOROQUINE SULFATE 200 MG TAB PO SCH (08:35)
[2023-09-26] MEDS: ISOSORBIDE MONONITRATE 20 MG TABLET PO SCH (08:36)
[2023-09-26] MEDS: FAMOTIDINE 20MG TAB PO SCH (08:36)
[2023-09-26] MEDS: APIXABAN 5 MG TABLET PO SCH (08:37)
[2023-09-26] MEDS ORDERED: LEVOFLOXACIN 500 MG TABLET PO SCH (09:00)
[2023-09-26] MEDS: IRBESARTAN 150 MG PO SCH (09:26)
[2023-09-26] MEDS ORDERED: AEC81 PO (16:16)
[2023-09-29] MEDS ORDERED: APIXABAN 5 MG TABLET PO SCH (21:00)
== END 2023-09-26 17:36 | disposition home or self-care (01) | DRG 177 ==
LOC: EDH 02:58 → EDHIP 05:30 → 2AH 22:00
PROVIDERS: ADMIT Hospitalist; ATTEND Hospitalist
PROC: 5A09357 Assistance with Respiratory Ventilation, Less than 24 Consecutive Hours, Continuous Positive Airway Pressure (ICD-10-PCS; principal; 2023-09-22)
PROC: 5A09357 Assistance with Respiratory Ventilation, Less than 24 Consecutive Hours, Continuous Positive Airway Pressure (ICD-10-PCS; 2023-09-23)
PROC: 5A09357 Assistance with Respiratory Ventilation, Less than 24 Consecutive Hours, Continuous Positive Airway Pressure (ICD-10-PCS; 2023-09-24)
PROC: 5A09357 Assistance with Respiratory Ventilation, Less than 24 Consecutive Hours, Continuous Positive Airway Pressure (ICD-10-PCS; 2023-09-25)
DX: U07.1 COVID-19 (principal); I26.99 Other pulmonary embolism without acute cor pulmonale; J96.01 Acute respiratory failure with hypoxia; E46 Unspecified protein-calorie malnutrition; D68.69 Other thrombophilia; E87.6 Hypokalemia; E66.9 Obesity, unspecified; E03.9 Hypothyroidism, unspecified; M06.9 Rheumatoid arthritis, unspecified; E78.5 Hyperlipidemia, unspecified; F32.A Depression, unspecified; G47.33 Obstructive sleep apnea (adult) (pediatric); I11.9 Hypertensive heart disease without heart failure; N64.4 Mastodynia; Z79.82 Long term (current) use of aspirin; Z82.49 Family history of ischemic heart disease and other diseases of the circulatory system; Z68.37 Body mass index [BMI] 37.0-37.9, adult; Z83.3 Family history of diabetes mellitus; Z86.718 Personal history of other venous thrombosis and embolism; Z91.199 Patient's noncompliance with other medical treatment and regimen due to unspecified reason; Z88.5 Allergy status to narcotic agent; Z88.8 Allergy status to other drugs, medicaments and biological substances
CPT/HCPCS: 36415; 36600; 71045; 71275; 80048; 80053; 80061; 82803; 83036; 83735; 83880; 84100; 84145; 84443; 84484; 85025; 85378; 87040; 87635; 87804; 93005; 93306; 93356; 93970; 94640; 94660; 94664; 94760; C9803; G0378; J0360; J1100; J1650; Q9967

== ENCOUNTER → 2023-11-21 | Outpatient (CLI) | payer OTHER ==
[~2023-11-21] MED LIST changes: +AMLO-258 PO; -APIX2.5T PO; +APIX5TAB PO; +CARV12.580 PO; +DEXA6TAB PO; -DICY20TA2 PO; -DIPH1TAB PO; +ESOM40CA54 PO; +HYDR200T75 PO; +IRBE300T26 PO; +ISOS20TA85 PO; +LEVO-70 PO; -LEVO112T4 PO; +LEVO150 PO; -LISI1TAB51 PO; -METH4TAB3 PO; -METO-296 PO; -MULT-1203 PO; -MV-M1TAB20 PO; -ONDA-104 PO; -ONDA4TAB10 PO; -PANT40TA54 PO; -PANT40TA55 PO
== END | disposition home or self-care (01) ==
LOC: LAB 09:42
PROVIDERS: ATTEND Psychiatry & Neurology Psychiatry
DX: Z79.899 Other long term (current) drug therapy (principal)
CPT/HCPCS: 93005

== ENCOUNTER 2024-06-17 12:39 | Emergency (ER) | payer OTHER ==
[~2024-06-17] VITALS: Ht 167.6 cm; Wt 87.5 kg
[~2024-06-17 12:39] MED LIST changes: -ESOM40CA54 PO; +ESOM40CA66 PO; +METR-172 PO; +ONDA-243 PO
[2024-06-17 13:38] LABS: BASOPHILS # (AUTO) 0.03 K/uL (0.00-0.20); BASOPHILS % (AUTO) 0.4 % (0.0-5.0); EOSINOPHILS # (AUTO) 0.13 K/uL (0.00-0.70); EOSINOPHILS % (AUTO) 1.7 % (0.0-8.0); HEMATOCRIT 38.9 % (36-48); IMMATURE GRANULOCYTE ABSOLUTE 0.03 K/uL (0-1); LYMPHOCYTES # (AUTO) 1.3 K/uL (1.0-4.8); LYMPHOCYTES % (AUTO) 17.7 % (21.0-51.0); MEAN CORPUSCULAR HEMOGLOBIN 27.8 pg (27.0-33.0); MEAN CORPUSCULAR HGB CONC 32.9 g/dL (32.0-36.0); MEAN CORPUSCULAR VOLUME 84.6 fL (79-99); MONOCYTES # (AUTO) 0.7 K/uL (0.1-1.0); NEUTROPHILS # (AUTO) 5.4 K/uL (1.8-7.7); NEUTROPHILS % (AUTO) 70.8 % (40.0-77.0); PLATELET COUNT (AUTO) 288 K/uL (130-400); RED CELL DISTRIBUTION WIDTH 14.5 % (11.0-15.5); WHITE BLOOD COUNT (AUTO) 7.6 K/uL (4.8-10.8)
[2024-06-17 13:42] LABS: POTASSIUM 3.9 mmol/L (3.5-5.1)
[2024-06-17 13:49] LABS: ALBUMIN 3.5 g/dL (3.5-5.0); TOTAL PROTEIN, SERUM 6.8 g/dL (6.0-8.3)
[2024-06-17 14:06] LABS: BILIRUBIN,TOTAL 0.8 mg/dL (0.2-1.0)
[2024-06-17 15:30] VITALS: BP 118/72; PULSE 72; RESP 18; TEMP 98.1; O2SAT 98
[2024-06-17 16:15] LABS: APPEARANCE,URINE CLEAR (CLEAR); BILIRUBIN,URINE NEGATIVE (NEGATIVE); COLOR,URINE LIGHT-YELLOW (YELLOW); GLUCOSE, URINE (UA) NEGATIVE (NEGATIVE); KETONES,URINE NEGATIVE (NEGATIVE); LEUKOCYTE ESTERASE ,URINE NEGATIVE Leu/uL (NEGATIVE); NITRATE,URINE NEGATIVE (NEGATIVE); OCCULT BLOOD,URINE NEGATIVE (NEGATIVE); PROTEIN,URINE NEGATIVE (NEGATIVE); UROBILINOGEN,URINE 0.2 mg/dL (0.2-1.0)
[2024-06-17 16:16] LABS: ADD UA MICROSCOPIC NO
[2024-06-17] MEDS ORDERED: ONDA-243 PO (16:25)
[2024-06-17] MEDS ORDERED: METR375C2 PO (16:25)
[2024-06-17] MEDS ORDERED: FAMO-136 PO (16:25)
[2024-06-17] MEDS: ONDANSETRON ODT 4MG TAB SL ONE (16:34)
[2024-06-17] MEDS: FAMOTIDINE 20MG TAB PO ONE (16:34)
== END 2024-06-17 16:00 | disposition home or self-care (01) ==
LOC: EDH 12:39
DX: K52.9 Noninfective gastroenteritis and colitis, unspecified (principal); E78.00 Pure hypercholesterolemia, unspecified; I10 Essential (primary) hypertension; E03.9 Hypothyroidism, unspecified; Z79.82 Long term (current) use of aspirin; Z79.899 Other long term (current) drug therapy; Z88.5 Allergy status to narcotic agent; Z88.8 Allergy status to other drugs, medicaments and biological substances; Z90.49 Acquired absence of other specified parts of digestive tract; Z98.890 Other specified postprocedural states
CPT/HCPCS: 36415; 71045; 80053; 81003; 82550; 83690; 84484; 85025; 93005

== ENCOUNTER 2024-06-23 15:07 | Emergency (ER) | payer OTHER ==
[~2024-06-23] VITALS: Ht 154.9 cm; Wt 79.4 kg
[~2024-06-23 15:07] MED LIST changes: +FAMO-136 PO; +METR375C2 PO
[2024-06-23 15:15] VITALS: BP 126/77; PULSE 70; RESP 18; TEMP 98.1
[2024-06-23 15:42] LABS: BASOPHILS # (AUTO) 0.04 K/uL (0.00-0.20); BASOPHILS % (AUTO) 0.5 % (0.0-5.0); EOSINOPHILS # (AUTO) 0.12 K/uL (0.00-0.70); EOSINOPHILS % (AUTO) 1.6 % (0.0-8.0); HEMATOCRIT 37.4 % (36-48); IMMATURE GRANULOCYTE ABSOLUTE 0.03 K/uL (0-1); LYMPHOCYTES # (AUTO) 1.2 K/uL (1.0-4.8); LYMPHOCYTES % (AUTO) 15.8 % (21.0-51.0); MEAN CORPUSCULAR HGB CONC 33.4 g/dL (32.0-36.0); MEAN CORPUSCULAR VOLUME 83.7 fL (79-99); MONOCYTES # (AUTO) 0.7 K/uL (0.1-1.0); MONOCYTES % (AUTO) 9.6 % (3.0-13.0); NEUTROPHILS # (AUTO) 5.6 K/uL (1.8-7.7); NEUTROPHILS % (AUTO) 72.1 % (40.0-77.0); PLATELET COUNT (AUTO) 273 K/uL (130-400); RED BLOOD CELL COUNT(AUTO) 4.47 MIL/uL (4.00-5.50); RED CELL DISTRIBUTION WIDTH 14.1 % (11.0-15.5); WHITE BLOOD COUNT (AUTO) 7.7 K/uL (4.8-10.8)
[2024-06-23 15:53] LABS: CARBON DIOXIDE 30 mmol/L (21-32); CHLORIDE 97 mmol/L (101-111); CREATININE 1.4 mg/dL (0.5-1.0); GLOMERULAR FILTR. RATE CALC 40 mL/min (>90); GLUCOSE,RANDOM 107 mg/dL (70-105); POTASSIUM 4.1 mmol/L (3.5-5.1); SODIUM SERUM 134 mmol/L (136-145); UREA NITROGEN, BLOOD 20 mg/dL (7-18)
[2024-06-23 15:54] LABS: ALCOHOL, BLOOD < 3 mg/dL (0-10); INR 1.07 (0.85-1.15); PROTHROMBIN TIME 11.5 SEC (9.6-11.6)
[2024-06-23 15:56] LABS: PARTIAL THROMBOPLASTIN TIME 28.7 SEC (26.3-35.5)
== END 2024-06-23 19:15 | disposition home or self-care (01) ==
LOC: EDH 15:07
DX: I26.99 Other pulmonary embolism without acute cor pulmonale (principal); K59.00 Constipation, unspecified; R55 Syncope and collapse; E78.00 Pure hypercholesterolemia, unspecified; I10 Essential (primary) hypertension; Z79.01 Long term (current) use of anticoagulants; Z79.52 Long term (current) use of systemic steroids; Z79.82 Long term (current) use of aspirin; Z79.899 Other long term (current) drug therapy; Z88.5 Allergy status to narcotic agent; Z88.8 Allergy status to other drugs, medicaments and biological substances; Z90.49 Acquired absence of other specified parts of digestive tract; Z96.651 Presence of right artificial knee joint; X58.XXXA Exposure to other specified factors, initial encounter; Y93.89 Activity, other specified; Y92.89 Other specified places as the place of occurrence of the external cause; Y99.8 Other external cause status
CPT/HCPCS: 36415; 70450; 71045; 71250; 72125; 73565; 74176; 80048; 84484; 85025; 85610; 85730; 73560

== ENCOUNTER → 2024-08-01 | Outpatient (CLI) | payer OTHER | END | disposition home or self-care (01) | LOC: RAH 12:08 | PROVIDERS: ATTEND Internal Medicine Gastroenterology | DX: R13.12 Dysphagia, oropharyngeal phase (principal); R63.30 Feeding difficulties, unspecified | CPT/HCPCS: 74230; 92611 ==

== ENCOUNTER 2025-08-03 00:33 | Emergency (ER) | payer OTHER ==
[~2025-08-03] VITALS: Ht 165.1 cm; Wt 90.7 kg
[~2025-08-03 00:33] MED LIST changes: +ISOS-58 PO; -ISOS20TA85 PO
--- NOTE | 2025-08-03 00:37 | NUR ---
PT CARE ASSUMED AT THIS TIME.
--- NOTE | 2025-08-03 00:41 | ERN ---
ED Note History of Present Illness Stated Complaint: N/V/D, LOWER BACK PAIN Chief Complaint: Nausea,Vomiting,Diarrhea Time Seen by : 00:37 Dictation: PATIENT IS A 74-YEAR-OLD FEMALE COMING IN VIA EMS WITH COMPLAINTS OF LOWER ABDOMINAL PELVIC PAIN WITH NAUSEA VOMITING AND RIGHT LOWER BACK PAIN ONSET THIS AFTERNOON. SHE DENIES FEVER CHILLS NO CHEST PAIN NO BACK PAIN NO SOB. STATES SHE DOES NOT HAVE AN APPENDIX NOR A GALLBLADDER. DOES HAVE A YOUR HISTORY OF URINARY TRACT INFECTIONS AND STATES SHE THINKS SHE HAS HAD DIVERTICULITIS IN THE PAST. Allergies: Coded Allergies: Uyguhnl-Bpb-Zom Reductase Inhibitor (Unverified Allergy, Unknown, 05/12/21) codeine (Unverified Allergy, Unknown, 05/12/21) Home Meds Active Scripts Metronidazole (Flagyl) 375 Mg Capsule, 375 MG PO BID for 5 Days, #10 CAP Prov:DANNIE DIAZ [facility] 06/17/24 Ondansetron (Ondansetron Odt) 4 Mg Tab.rapdis, 4 MG PO BID for 7 Days, #14 TAB Prov:DANNIE DIAZ [facility] 06/17/24 Famotidine (Pepcid) 20 Mg Tablet, 20 MG PO BID for 5 Days, #10 TAB Prov:DANNIE DIAZ [facility] 06/17/24 Ondansetron (Ondansetron Odt) 4 Mg Tab.rapdis, 4 MG PO Q6HPRN PRN for nausea, #20 TAB 2 Refills Prov:GERMAINE PRETTY Sr., MD 12/31/23 Metronidazole (Metronidazole) 500 Mg Tablet, 500 MG PO QID for 10 Days, #40 TAB 0 Refills Prov:GERMAINE PRETTY Sr., MD 12/31/23 Aspirin (ASPIRIN 81 MG ECTAB) 81 Mg Ectab, 81 MG PO DAILY, #30 TAB.EC Prov:TAMARA MAI MD 09/26/23 Apixaban (Eliquis) 5 Mg Tablet, 10 MG PO BID for 4 Days, #16 TAB Prov:KELSEA DOVEChaz 09/25/23 Apixaban (Eliquis) 5 Mg Tablet, 5 MG PO BID for 90 Days, #180 TAB Prov:KELSEA DOVE [facility] 09/25/23 Levofloxacin (Levofloxacin) 500 Mg Tablet, 500 MG PO DAILY for 7 Days, #7 TAB Prov:KELSEA DOVE AGACNP 09/25/23 Dexamethasone (Dexamethasone) 6 Mg Tablet, 6 MG PO DAILY for 7 Days, #7 TAB Prov:KELSEA DOVE AGACNP 09/25/23 Cyclobenzaprine HCl (Cyclobenzaprine HCl) 10 Mg Tablet, 10 MG PO Q8 for PAIN, #30 TAB Prov:RICHARD PERDOMO [employer] 08/29/23 Reported Medications Carvedilol (Coreg) 12.5 Mg Tablet, 12.5 MG PO BID, TAB 09/22/23 Hydroxychloroquine Sulfate (Hydroxychloroquine Sulfate) 200 Mg Tablet, 200 MG PO BID, TAB 09/21/23 Esomeprazole Magnesium (Esomeprazole Magnesium) 40 Mg Capsule.dr, 40 MG PO DAILY, CAP 09/21/23 Irbesartan (Irbesartan) 300 Mg Tablet, 150 MG PO BID, TAB 09/21/23 Isosorbide Mononitrate (Isosorbide Mononitrate) 20 Mg Tablet, 30 MG PO DAILY, TAB 09/21/23 Amlodipine Besylate (Amlodipine Besylate) 10 Mg Tablet, 10 MG PO DAILY for 30 Days, #30 TAB 0 Refills 09/21/23 Levothyroxine Sodium (Synthroid 150 Mcg Tab) 150 Mcg Tab, 150 MCG PO ACBKFST, TAB 09/21/23 Past Medical History Past Medical History: High Cholesterol, Hypertension, Hypothyroid Additional Past Medical Hx: THYROID PROBLEMS Surgical History: Appendectomy, Cholecystectomy Surgical History Other: R KNEE SX,UMBILICAL HERNIA REPAIR Family History: Negative Social History: Negative, Lives with family History: Not Applicable RN Note Reviewed/Agreed w/PFSH: Yes Review of System Dictation CONSTITUTIONAL: NEGATIVE EXCEPT FOR HPI HEAD/FACE: NEGATIVE EXCEPT FOR HPI EENT: NEGATIVE EXCEPT FOR HPI RESPIRATORY: NEGATIVE EXCEPT FOR HPI GASTROINTESTINAL/ABDOMINAL: NEGATIVE EXCEPT FOR HPI LOWER ABDOMINAL PELVIC PAIN WITH NAUSEA VOMITING RIGHT FLANK PAIN GENITOURINARY: NEGATIVE EXCEPT FOR HPI MUSCULOSKELETAL: NEGATIVE EXCEPT FOR HPI INTEGUMENTARY: NEGATIVE EXCEPT FOR HPI NEUROLOGICAL/PSYCH: NEGATIVE EXCEPT FOR HPI HEMATOLOGIC/LYMPHATIC: NEGATIVE EXCEPT FOR HPI ALL SYSTEMS NEGATIVE, EXCEPT NOTED ABOVE. 13 POINT REVIEW OF SYSTEMS ASSESSED AND ALL NEGATIVE EXCEPT FOR ABOVE. Initial Vital Sign VS Vital Signs Date Time Temp Pulse Resp B/P (MAP) Pulse Ox O2 Delivery O2 Flow Rate FiO2 08/03/25 00:34 99.1 75 18 105/66 98 0 08/03/25 00:39 Room Air* 21 Physical Exam Dictation VITAL SIGNS REVIEWED GENERAL APPEARANCE: ALERT, ORIENTED X 3, MODERATE ACUTE DISTRESS, WELL DEVELOPED, NOURISHED. HEAD AND FACE: NON-TRAUMATIC. EYES: PERRL, PINK CONJUNCTIVAS, EYELID NO TRAUMA, ANTERIOR CHAMBER WITH ARCUS SENILIS. EARS: PINNAS INTACT AND NO SIGNS OF TRAUMA OR ERYTHEMA EAR CANALS CLEAR AND NO DISCHARGE TM NO ERYTHEMA NOSE: NO DISCHARGE, NO BLEEDING. OROPHARYNX: MOUTH NORMAL, TONGUE PINK, PHARYNX CLEAR,NO ERYTHEMA, TONSILS NO EXUDATES, NO ABSCESSES NOTED, MUCOUS MEMBRANE MOIST NECK: SUPPLE, NON-TENDER, NO THYROMEGALY, NO MASSES, NO JVD, NO BRUITS BREAST:DEFERRED CHEST:NO TENDERNESS, NO CREPITUS, NO PARADOXICAL MOVEMENT, NO RETRACTIONS LUNGS:CLEAR, WELL-VENTILATED, SYMMETRIC, NO RALES, NO WHEEZING, NO RHONCHI, NO STRIDOR, GOOD BREATH SOUNDS BILATERALLY HEART: REGULAR RATE, REGULAR RHYTHM, NO MURMUR, NO GALLOPS VASCULAR: NO PERIPHERAL EDEMA, ABDOMEN: SOFT, POSITIVE BOWEL SOUNDS, NONDISTENDED, NO GUARDING, SUPRAPUBIC AND LEFT LOWER QUADRANT PAIN TENDERNESS WITH PALPATION. NEGATIVE CVAT BILATERALLY RECTAL: DEFERRED GENITAL: DEFERRED NEUROLOGICAL: NORMAL SPEECH, MOTOR FUNCTION INTACT, SENSORY FUNCTION INTACT MUSCULOSKELETAL: NECK NONTENDER, FULL RANGE OF MOTION, BACK NONTENDER, FULL RANGE OF MOTION, EXTREMITIES: NONTENDER, FULL RANGE OF MOTION SKIN: COLOR PINK, DRY, NO TURGOR, NO RASH, NO LACERATIONS, NO ABRASIONS, NO CONTUSIONS. LYMPHATIC: DEFERRED Results (Laboratory/Radiology) Laboratory/Radiology Laboratory Tests Test 08/03/25 00:51 08/03/25 02:52 White Blood Count 12.0 K/uL (4.8-10.8) H Red Blood Count 4.58 MIL/uL (4.00-5.50) Hemoglobin 13.2 g/dL (12.0-16.0) Hematocrit 38.7 % (36-48) Mean Corpuscular Volume 84.5 fL (79-99) Mean Corpuscular Hemoglobin 28.8 pg (27.0-33.0) Mean Corpuscular Hemoglobin Concent 34.1 g/dL (32.0-36.0) Red Cell Distribution Width 13.5 % (11.0-15.5) Platelet Count 321 K/uL (130-400) Mean Platelet Volume 9.3 fL (7.5-10.5) Immature Granulocyte % (Auto) 0.4 % (0-1) Neutrophils (%) (Auto) 66.9 % (40.0-77.0) Lymphocytes (%) (Auto) 21.7 % (21.0-51.0) Monocytes (%) (Auto) 9.8 % (3.0-13.0) Eosinophils (%) (Auto) 0.9 % (0.0-8.0) Basophils (%) (Auto) 0.3 % (0.0-5.0) Neutrophils # (Auto) 8.0 K/uL (1.8-7.7) H Lymphocytes # (Auto) 2.6 K/uL (1.0-4.8) Monocytes # (Auto) 1.2 K/uL (0.1-1.0) H Eosinophils # (Auto) 0.11 K/uL (0.00-0.70) Basophils # (Auto) 0.04 K/uL (0.00-0.20) Absolute Immature Granulocyte (auto 0.05 K/uL (0-1) Nucleated Red Blood Cells 0.0 % (0.0-0.19) Sodium Level 141 mmol/L (136-145) Potassium Level 3.7 mmol/L (3.5-5.1) Chloride Level 100 mmol/L (101-111) L Carbon Dioxide Level 28 mmol/L (21-32) Blood Urea Nitrogen 31 mg/dL (7-18) H Creatinine 1.0 mg/dL (0.5-1.0) Glomerular Filtration Rate Calc 59 mL/min (>90) Random Glucose 114 mg/dL (70-105) H Total Calcium 8.7 mg/dL (8.5-10.1) Troponin I High Sensitivity 21 ng/L (4-50) Lipase 37 U/L (16-77) Urine Color LIGHT-YELLOW (YELLOW) Urine Appearance CLEAR (CLEAR) Urine pH 5.0 (5.0-8.0) Urine Specific Dexter 1.016 (1.001-1.031) Urine Protein NEGATIVE mg/dL (NEGATIVE) Urine Glucose (UA) NEGATIVE mg/dL (NEGATIVE) Urine Ketones NEGATIVE mg/dL (NEGATIVE) Urine Occult Blood NEGATIVE (NEGATIVE) Urine Nitrate NEGATIVE (NEGATIVE) Urine Bilirubin NEGATIVE mg/dL (NEGATIVE) Urine Urobilinogen 0.2 mg/dL (0.2-1.0) Urine Leukocyte Esterase 250 Lois/uL (NEGATIVE) H Urine RBC 2-5 /HPF (0-1) H Urine WBC 11-25 /HPF (0-1) H Urine Squamous Epithelial Cells RARE /HPF (0-2) Urine Other Crystals (Auto) 2 /HPF (None Seen) Urine Bacteria RARE /HPF (None Seen) Urine Hyaline Casts 6-10 /LPF (0-1 /LPF) H Labs Reviewed?: Yes EKG Comment: 0048/SINUS RHYTHM HEART RATE 70/AXIS NORMAL/ANTERIOR Q-WAVES ED Course ED Course Orders Procedure Category Date Status Time Cbc With Differential LAB 08/03/25 Complete 00:38 Troponin I High LAB 08/03/25 Complete Sensitivity 00:38 Urinalysis Profile LAB 08/03/25 Complete 00:38 12 Lead Ekg Tracing- EKG 08/03/25 Complete Technical 00:38 0.9%Nacl 1000ml (Ns PHA 08/03/25 Complete 1000ml) 01:00 Morphine 2mg Syg PHA 08/03/25 Complete (Morphine 2mg Syg) 01:00 Ondansetron 4mg Inj PHA 08/03/25 Complete (Zofran 4mg Inj) 01:00 Lipase LAB 08/03/25 Complete 00:38 Basic Metabolic Panel LAB 08/03/25 Complete 00:38 Ct Abdomen/Pelvis CT 08/03/25 Taken W/Contrast 01:36 Ketorolac PHA 08/03/25 Complete Tromethamine 30mg/Ml 02:00 Ketorolac PHA 08/03/25 Complete Tromethamine 30mg/Ml 01:50 Iohexol (Omnipaque) PHA 08/03/25 Complete 02:52 Culture Urine SUYAPA 08/03/25 In Process 03:04 Current Medications Medications (Trade) Dose Ordered Sig/Ashish Route PRN Reason Start Time Stop Time Status Last Admin Dose Admin Iohexol (Omnipaque) 35,000 mg STK-MED ONCE IV 08/03/25 02:52 08/03/25 02:52 DC Ketorolac Tromethamine (toRADol) 30 mg ONCE ONCE IVP 08/03/25 02:00 08/03/25 02:01 DC 08/03/25 02:04 Ketorolac Tromethamine (toRADol) 30 mg STK-MED ONCE .ROUTE 08/03/25 01:50 08/03/25 01:50 DC Morphine Sulfate (morPHINE 2MG SYG) 2 mg ONCE ONCE IVP 08/03/25 01:00 08/03/25 02:58 DC Ondansetron HCl (zoFRAN 4MG INJ) 4 mg ONCE ONCE IVP 08/03/25 01:00 08/03/25 01:01 DC 08/03/25 01:27 Sodium Chloride 1,000 ml @ 0 mls/hr ONCE ONCE IV 08/03/25 01:00 08/03/25 01:01 DC 08/03/25 01:27 Vital Signs Date Time Temp Pulse Resp B/P (MAP) Pulse Ox O2 Delivery O2 Flow Rate FiO2 08/03/25 00:39 99.1 77 17 126/68 95 Room Air* 0 21 08/03/25 00:34 99.1 75 18 105/66 98 0 HEART Score Response (Comments) Value EKG: Repolarization changes 1 Age: > 65yrs (+2) 2 Risk Factors: 1-2 risk factors (+1) 1 Initial Troponin: Normal limit (0) 0 Total 4 Medical Decision Making MDM His lab work does show a very mild leukocytosis. A mild hypochloremia a mild elevation of her BUN. UA showed a high leukocyte esterase activity with bacteria present albeit rare. CT scan does not show any free air or abscess collections or inflammation. Patient feels better after receiving the fluid bolus. I will give her a g of Ancef here in the emergency room and discharge her with some antibiotics to treat her urinary tract infection. DX & DISP Disposition: Discharge Departure Impression: Primary Impression: Urinary tract infection Condition: Stable Additional Instructions: Are lab work shows that you have a urinary tract infection. I have given you some antibiotics here and discharge to home with a prescription for antibiotics. Please follow-up with your primary care physician to be sure that your urine is clear after you have completed your course of antibiotics. Please come back to the emergency room if you have recurrent nausea and vomiting to the point that you can not stay well hydrated. Referrals: PARUL DOBBS (PCP) RICHARD PERDOMO Aug 03, 2025 00:41 YAW العلي MD Aug 03, 2025 04:16
--- NOTE | 2025-08-03 00:53 | EKG ---
[facility] Test Date: 2025-08-03 Test Time: 00:48:07 Pat Name: MORENO VALDOVINOS Department: ED Room: Gender: F Crane Operator: [id number] : 1950 Requested By: RICHARD PERDOMO Order Number: [id number] Reading MD: Claudy Shaikh Measurements Intervals [place] Rate: 70 P: 20 MD: 162 QRS: -21 QRSD: 78 T: 19 QT: 415 QTc: 449 Interpretive Statements Sinus rhythm Low voltage, precordial leads Anterior Q waves, possibly due to LVH Compared to ECG 06/17/2024 12:52:44 No significant changes Electronically Signed On 08-03-2025 17:46:07 CDT by Claudy Shaikh Please click the below link to view image of tracing.
[2025-08-03 00:58] LABS: IMMATURE GRANULOCYTE ABSOLUTE 0.05 K/uL (0-1); NUCLEATED RED BLOOD CELLS 0.0 % (0.0-0.19); PLATELET COUNT (AUTO) 321 K/uL (130-400); RED BLOOD CELL COUNT(AUTO) 4.58 MIL/uL (4.00-5.50); RED CELL DISTRIBUTION WIDTH 13.5 % (11.0-15.5); WHITE BLOOD COUNT (AUTO) 12.0 K/uL (4.8-10.8)
[2025-08-03 01:09] LABS: CREATININE 1.0 mg/dL (0.5-1.0); GLOMERULAR FILTR. RATE CALC 59.0 mL/min (>90); GLUCOSE,RANDOM 114.0 mg/dL (70-105); SODIUM SERUM 141.0 mmol/L (136-145); UREA NITROGEN, BLOOD 31.0 mg/dL (7-18)
[2025-08-03] MEDS: 0.9%NACL 1000ML 1,000 ML IV ONE (01:27)
[2025-08-03] MEDS ORDERED: IOHEXOL 350 MG/ML 100ML INFUS..BTL IV ONE (02:52)
[2025-08-03 03:03] LABS: APPEARANCE,URINE CLEAR (CLEAR); GLUCOSE, URINE (UA) NEGATIVE (NEGATIVE); LEUKOCYTE ESTERASE ,URINE 250 Leu/uL (NEGATIVE); NITRATE,URINE NEGATIVE (NEGATIVE); OCCULT BLOOD,URINE NEGATIVE (NEGATIVE)
[2025-08-03 03:04] LABS: ADD UA MICROSCOPIC YES
[2025-08-03 03:05] LABS: SQUAMOUS EPITHELIAL CELL,UR RARE /HPF (0-2); UNCLASSIFIED CRYSTAL 2 /HPF (None Seen)
[2025-08-03] MEDS ORDERED: NITR100C PO (04:25)
--- NOTE | 2025-08-03 05:00 | HMCIMG ---
EXAM: CT Abdomen and Pelvis with IV contrast CLINICAL HISTORY: Left lower quadrant pain. TECHNIQUE: Postcontrast thin collimated axial CT images of the abdomen and pelvis were obtained with sagittal and coronal reformatted images also submitted. CT scan is done according to ALARA (As Low As Reasonably Achievable). COMPARISON: Prior CT chest, abdomen, and pelvis dated June 23, 2024. FINDINGS: Unremarkable visualized lung parenchyma. Post cholecystectomy status. The common bile duct is within normal limits in the postoperative state. Mild fatty infiltration of the liver. No focal abnormality within the liver, pancreas, spleen, adrenals, or kidneys. Mild hiatus hernia. Uncomplicated periampullary duodenal diverticula. Scattered diverticulosis of the sigmoid colon without evidence of diverticulitis. There is no obvious bowel wall thickening. Bowel loops are normal in caliber without evidence of obstruction or ileus. The appendix is normal. Subtle anterior wall thickening of the urinary bladder with adjacent fat stranding. Unremarkable reproductive organs. IVC filter is identified. Abdominal and pelvic vessels are patent. No lymphadenopathy. No free fluid. There is no acute osseous abnormality. Degenerative changes in the bilateral sacroiliac, superolateral hip joint, and multilevel severe degenerative facet arthropathy in the lumbar spine. Mild dextrocurvature of the lumbar spine. IMPRESSIONS: No acute process. Scattered diverticulosis of the sigmoid colon without evidence of diverticulitis. Uncomplicated periampullary duodenal diverticula.Mild hiatus hernia. Large bowel loops are moderately distended with fecal matter. Mild fatty infiltration of the liver. Post cholecystectomy status. Mild chronic cystitis. Compared to the prior study, scattered diverticula of the sigmoid colon were redemonstrated, with resolution of the fat stranding surrounding the diverticula in the proximal sigmoid colon. /[place]
[2025-08-03 05:27] VITALS: BP 123/65; PULSE 80; RESP 15; TEMP 98.9; O2SAT 95
== END 2025-08-03 05:33 | disposition home or self-care (01) ==
LOC: EDH 00:33
DX: N39.0 Urinary tract infection, site not specified (principal); E03.9 Hypothyroidism, unspecified; E78.00 Pure hypercholesterolemia, unspecified; I10 Essential (primary) hypertension; Z79.01 Long term (current) use of anticoagulants; Z79.52 Long term (current) use of systemic steroids; Z79.82 Long term (current) use of aspirin; Z79.899 Other long term (current) drug therapy; Z88.5 Allergy status to narcotic agent; Z88.8 Allergy status to other drugs, medicaments and biological substances; Z90.49 Acquired absence of other specified parts of digestive tract
CPT/HCPCS: 99285; 74177; 96365; 96361; 84484; 80048; 83690; 85025; 87086; 81001; 36415; 96376; 93005; J1885; J0690; J7030; J2405; Q9967

== ENCOUNTER 2025-08-28 16:52 | Emergency (ER) | payer OTHER ==
[~2025-08-28] VITALS: Ht 165.1 cm; Wt 86.2 kg
[~2025-08-28 16:52] MED LIST changes: +NITR100C PO
--- NOTE | 2025-08-28 17:12 | EKG ---
[facility] Test Date: 2025-08-28 Test Time: 17:06:38 Pat Name: MORENO VALDOVINOS Department: ED Room: Gender: F Weekend Anchor: [id number] : 1950 Requested By: JENNI GOMEZ Order Number: [id number] Reading MD: Opal Alvarado Measurements Intervals [place] Rate: 77 P: 58 CT: 174 QRS: 5 QRSD: 89 T: 23 QT: 426 QTc: 481 Interpretive Statements Sinus rhythm Low voltage, precordial leads Compared to ECG 08/03/2025 00:48:07 Left ventricular hypertrophy no longer present Q waves no longer present Electronically Signed On 08-28-2025 17:13:06 GLOBE MOUNTER by Opal Alvarado Please click the below link to view image of tracing.
--- NOTE | 2025-08-28 17:24 | NUR ---
STATES HAS NO ITCHING TO HEAD ANYMORE
[2025-08-28 17:27] LABS: IMMATURE GRANULOCYTE ABSOLUTE 0.03 K/uL (0-1); NUCLEATED RED BLOOD CELLS 0.0 % (0.0-0.19); PLATELET COUNT (AUTO) 253 K/uL (130-400); RED BLOOD CELL COUNT(AUTO) 4.80 MIL/uL (4.00-5.50); RED CELL DISTRIBUTION WIDTH 13.3 % (11.0-15.5); WHITE BLOOD COUNT (AUTO) 8.1 K/uL (4.8-10.8)
[2025-08-28 17:35] LABS: CREATININE 0.8 mg/dL (0.5-1.0); GLOMERULAR FILTR. RATE CALC 77.0 mL/min (>90); GLUCOSE,RANDOM 103.0 mg/dL (70-105); SODIUM SERUM 139.0 mmol/L (136-145); UREA NITROGEN, BLOOD 13.0 mg/dL (7-18)
--- NOTE | 2025-08-28 18:15 | ERN ---
General Chief Complaint: Allergic Reaction Stated Complaint: ALLERGIC REACTION Time Seen by MD: 16:58 Source: patient History of Present Illness Initial Comments PATIENT IS A 75-YEAR-OLD FEMALE COMING IN COMPLAINING LITTLE WITH THE ALLERGIC REACTION. PER PATIENT SHE GOT ANOTHER STEROID INJECTION STARTED FEELING WEIRD DECIDED TO COME IN FOR CLOSE EVALUATION. PER [facility] CONSULTANT PATIENT HAS A BLOOD PRESSURE IN THE LOW SIDE SENT HER IN FOR EVALUATION. Allergies: Coded Allergies: Ojjwfqf-Sil-Mhp Reductase Inhibitor (Unverified Allergy, Unknown, 05/12/21) codeine (Unverified Allergy, Unknown, 05/12/21) Home Meds Active Scripts Nitrofurantoin Macrocrystal (Nitrofurantoin) 100 Mg Capsule, 1 CAP PO BID for 7 Days, #14 CAP 0 Refills Prov:YAW العلي MD 08/03/25 Metronidazole (Flagyl) 375 Mg Capsule, 375 MG PO BID for 5 Days, #10 CAP Prov:DANNIE DIAZ [facility] 06/17/24 Ondansetron (Ondansetron Odt) 4 Mg Tab.rapdis, 4 MG PO BID for 7 Days, #14 TAB Prov:DANNIE DIAZ [facility] 06/17/24 Famotidine (Pepcid) 20 Mg Tablet, 20 MG PO BID for 5 Days, #10 TAB Prov:DANNIE DIAZ [facility] 06/17/24 Ondansetron (Ondansetron Odt) 4 Mg Tab.rapdis, 4 MG PO Q6HPRN PRN for nausea, #20 TAB 2 Refills Prov:GERMAINE PRETTY Sr., MD 12/31/23 Metronidazole (Metronidazole) 500 Mg Tablet, 500 MG PO QID for 10 Days, #40 TAB 0 Refills Prov:GERMAINE PRETTY Sr., MD 12/31/23 Aspirin (ASPIRIN 81 MG ECTAB) 81 Mg Ectab, 81 MG PO DAILY, #30 TAB.EC Prov:TAMARA MAI MD 09/26/23 Apixaban (Eliquis) 5 Mg Tablet, 10 MG PO BID for 4 Days, #16 [facility] Apixaban (Eliquis) 5 Mg Tablet, 5 MG PO BID for 90 Days, #180 TAB [facility] 09/25/23 Levofloxacin (Levofloxacin) 500 Mg Tablet, 500 MG PO DAILY for 7 Days, #7 TAB Prov:KELSEA [facility]OVE [facility] 09/25/23 Dexamethasone (Dexamethasone) 6 Mg Tablet, 6 MG PO DAILY for 7 Days, #7 TAB Prov:KELSEA DOVE [facility] 09/25/23 Cyclobenzaprine HCl (Cyclobenzaprine HCl) 10 Mg Tablet, 10 MG PO Q8 for PAIN, #30 TAB Prov:RICHARD PERDOMO [facility] 08/29/23 Reported Medications Carvedilol (Coreg) 12.5 Mg Tablet, 12.5 MG PO BID, TAB 09/22/23 Hydroxychloroquine Sulfate (Hydroxychloroquine Sulfate) 200 Mg Tablet, 200 MG PO BID, TAB 09/21/23 Esomeprazole Magnesium (Esomeprazole Magnesium) 40 Mg Capsule.dr, 40 MG PO DAILY, CAP 09/21/23 Irbesartan (Irbesartan) 300 Mg Tablet, 150 MG PO BID, TAB 09/21/23 Isosorbide Mononitrate (Isosorbide Mononitrate) 20 Mg Tablet, 30 MG PO DAILY, TAB 09/21/23 Amlodipine Besylate (Amlodipine Besylate) 10 Mg Tablet, 10 MG PO DAILY for 30 Days, #30 TAB 0 Refills 09/21/23 Levothyroxine Sodium (Synthroid 150 Mcg Tab) 150 Mcg Tab, 150 MCG PO ACBKFST, TAB 09/21/23 Past Medical History Past Medical History: High Cholesterol, Hypertension, Hypothyroid Medical History Other: THYROID PROBLEMS Past Surgical History: Appendectomy, Tonsillectomy, Cholecystectomy, Other Surgical History Other: UMBILICAL HERNIA Family History Family History: Negative Social History Social History: Negative, Lives with family Female( History) History: Not Applicable ROS Dictation CONSTITUTIONAL: NO CHILLS, NO FEVER, NO WEAKNESS, NO DIAPHORESIS, NO MALAISE. HEAD/FACE: NO SIGNS OF TRAUMA. EENT: NO EYE PAIN, NO BLURRED VISION, NO TEARING, NO DOUBLE VISION, NO EAR PAIN, NO EAR DISCHARGE, NO NOSE PAIN, NO NASAL CONGESTION, NO THROAT PAIN, NO THROAT SWELLING, NO MOUTH PAIN. RESPIRATORY: NO COUGH, NO ORTHOPNEA, NO SOB, NO STRIDOR, NO WHEEZING. CARDIOVASCULAR: NO CHEST PAIN, NO EDEMA, NO PALPITATIONS, NO SYNCOPE. GASTROINTESTINAL/ABDOMINAL: NO ABDOMINAL PAIN, NO CONSTIPATION, NO DIARRHEA, NO NAUSEA, NO VOMITING. GENITOURINARY: NO ABNORMAL DISCHARGE, NO DYSURIA, NO FREQUENT URINATION, NO HEMATURIA. NO COMPLAINTS OF PAIN IN THE GENITALS. MUSCULOSKELETAL: NO BACK PAIN, NO GOUT, NO JOINT PAIN, NO JOINT SWELLING, NO MUSCLE PAIN, NO MUSCLE STIFFNESS, NO NECK PAIN. INTEGUMENTARY: NO CHANGE IN COLOR, NO CHANGE IN HAIR/NAILS, NO DRYNESS, NO LESION, NO LUMPS, NO RASH. NEUROLOGICAL/PSYCH: NO ANXIETY, NOT DEPRESSED, NO EMOTIONAL PROBLEM, NO HEADACHE, NO NUMBNESS, NO PRE-EXISTING DEFICIT, NO HISTORY OF SEIZURES, NO TREMORS, NO WEAKNESS. HEMATOLOGIC/LYMPHATIC: NOT ANEMIC, NO HISTORY OF BLOOD CLOTS, NO APPARENT BLEEDING, NO BRUISING, GLANDS NOT SWOLLEN. ALL SYSTEMS NEGATIVE, EXCEPT NOTED. Physical Exam Physical Exam Dictation VITAL SIGNS: REVIEWED. GENERAL APPEARANCE: ALERT, ORIENTED X3, NO ACUTE DISTRESS, OBESE. HEAD AND FACE: NON-TRAUMATIC. EYES: PERRL, PINK CONJUNCTIVAS, EYELID NO TRAUMA, ANTERIOR CHAMBER CLEAR. EARS: PINNAS INTACT AND NO SIGNS OF TRAUMA OR ERYTHEMA. EAR CANALS CLEAR AND NO DISCHARGE. TMS NO ERYTHEMA. NOSE: NO DISCHARGE, NO BLEEDING. OROPHARYNX: MOUTH NORMAL, TEETH NO CARIES, TONGUE PINK. PHARYNX CLEAR, NO ERYTHEMA. TONSILS NO EXUDATES, NO ABSCESSES NOTED. MUCOUS MEMBRANE MOIST. NECK: SUPPLE, NON-TENDER, NO THYROMEGALY, NO MASSES, NO JVD, NO BRUITS. BREAST: DEFERRED. CHEST: NO TENDERNESS, NO CREPITUS, NO PARADOXICAL MOVEMENT, NO RETRACTIONS. LUNGS: CLEAR, WELL-VENTILATED, SYMMETRIC, NO RALES, NO WHEEZING, NO RHONCHI, NO STRIDOR, GOOD BREATH SOUNDS BILATERALLY. HEART: REGULAR RATE, REGULAR RHYTHM, NO MURMUR, NO GALLOPS. VASCULAR: NO PERIPHERAL EDEMA. ABDOMEN: SOFT, POSITIVE BOWEL SOUNDS, NONDISTENDED, NO GUARDING, NONTENDER, NO REBOUND, NO MASSES NO HEPATOMEGALY, NO SPLENOMEGALY, NO AZUL'S SIGN, NO HERNIAS. RECTAL: DEFERRED. GENITAL: DEFERRED. NEUROLOGICAL: NORMAL SPEECH, GROSS MOTOR FUNCTION INTACT, GROSS SENSORY FUNCTION INTACT. MUSCULOSKELETAL: NECK NONTENDER, FULL RANGE OF MOTION, BACK NONTENDER, FULL RANGE OF MOTION. EXTREMITIES: NONTENDER, FULL RANGE OF MOTION. SKIN: COLOR PINK, DRY, NO TURGOR, NO RASH, NO LACERATIONS, NO ABRASIONS, NO CONTUSIONS. LYMPHATICS: DEFERRED. Results Laboratory and Microbiology Lab and Micro Result Laboratory Tests Test 08/28/25 17:21 White Blood Count 8.1 K/uL (4.8-10.8) Red Blood Count 4.80 MIL/uL (4.00-5.50) Hemoglobin 13.5 g/dL (12.0-16.0) Hematocrit 41.0 % (36-48) Mean Corpuscular Volume 85.4 fL (79-99) Mean Corpuscular Hemoglobin 28.1 pg (27.0-33.0) Mean Corpuscular Hemoglobin Concent 32.9 g/dL (32.0-36.0) Red Cell Distribution Width 13.3 % (11.0-15.5) Platelet Count 253 K/uL (130-400) Mean Platelet Volume 9.0 fL (7.5-10.5) Immature Granulocyte % (Auto) 0.4 % (0-1) Neutrophils (%) (Auto) 86.7 % (40.0-77.0) H Lymphocytes (%) (Auto) 11.2 % (21.0-51.0) L Monocytes (%) (Auto) 1.1 % (3.0-13.0) L Eosinophils (%) (Auto) 0.4 % (0.0-8.0) Basophils (%) (Auto) 0.2 % (0.0-5.0) Neutrophils # (Auto) 7.0 K/uL (1.8-7.7) Lymphocytes # (Auto) 0.9 K/uL (1.0-4.8) L Monocytes # (Auto) 0.1 K/uL (0.1-1.0) Eosinophils # (Auto) 0.03 K/uL (0.00-0.70) Basophils # (Auto) 0.02 K/uL (0.00-0.20) Absolute Immature Granulocyte (auto 0.03 K/uL (0-1) Nucleated Red Blood Cells 0.0 % (0.0-0.19) Sodium Level 139 mmol/L (136-145) Potassium Level 3.8 mmol/L (3.5-5.1) Chloride Level 102 mmol/L (101-111) Carbon Dioxide Level 28 mmol/L (21-32) Blood Urea Nitrogen 13 mg/dL (7-18) Creatinine 0.8 mg/dL (0.5-1.0) Glomerular Filtration Rate Calc 77 mL/min (>90) Random Glucose 103 mg/dL (70-105) Total Calcium 9.0 mg/dL (8.5-10.1) Troponin I High Sensitivity 28 ng/L (4-50) Labs Reviewed?: Yes EKG/XRAY/US/CT/MRI EKG Comment 08/28/2025 TIME 5:06 P.M. VENTRICULAR RATE [address] S[address] WAVE ELEVATION OR DEPRESSION MDM MDM: DIFFERENTIAL DIAGNOSIS: HYPOTENSION, MEDICATION SIDE EFFECTS RATIONALE: TESTS CONSIDERED AND ORDERED SECONDARY TO SHARED DECISION MAKING INCL UDE: PREVIOUS OUTSIDE RECORDS REVIEWED: OLD ER VISITS. RISK OF COMPLICATION AND/OR MORBIDITY OR MORTALITY OF PATIENT MANAGEMENT: NONE MEDICATIONS-PER MEDICATION RECONCILIATION NEED FOR HOSPITALIZATION: PATIENT DOES NOT MEET CRITERIA FOR HOSPITALIZATION. NEED FOR EMERGENCY MAJOR/MINOR SURGERY: NO THERE ARE NO SOCIAL CONCERNS WITH THIS PATIENT. PATIENT IS A 75-YEAR-OLD FEMALE COMING IN IS A ALLERGIC REACTION AFTER RECEIVING A STEROID INJECTION. PATIENT WAS EVALUATED CARDIAC CABRERA NO ACUTE FINDINGS WERE PRESENT. PATIENT WAS HYDRATED WITH IV FLUIDS STATES HE FEELS MUCH BETTER WE WILL BE DISCHARGED IN STABLE CONDITION. ED Course Orders Procedure Category Date Status Time Cbc With Differential LAB 08/28/25 Complete 17:03 Basic Metabolic Panel LAB 08/28/25 Complete 17:03 12 Lead Ekg Tracing- EKG 08/28/25 Resulted Technical 17:03 Troponin I High LAB 08/28/25 Complete Sensitivity 17:03 Acetaminophen 500mg PHA 08/28/25 Complete Tab (Tylenol 500mg T 18:00 Acetaminophen 500mg PHA 08/28/25 Complete Tab (Tylenol 500mg T 17:44 Current Medications Medications (Trade) Dose Ordered Sig/Ashish Route PRN Reason Start Time Stop Time Status Last Admin Dose Admin Acetaminophen (TYLenol 500MG TAB) 500 mg STK-MED ONCE .ROUTE 08/28/25 17:44 08/28/25 17:44 DC 08/28/25 17:46 Acetaminophen (TYLenol 500MG TAB) 1,000 mg ONCE ONCE PO 08/28/25 18:00 08/28/25 18:02 DC Vital Signs Date Time Temp Pulse Resp B/P (MAP) Pulse Ox O2 Delivery O2 Flow Rate FiO2 08/28/25 17:52 81 20 146/67 96 Room Air* 0 21 08/28/25 17:03 98.1 73 16 123/65 96 Room Air 0 DX & DISP Disposition: Discharge Departure Impression: Primary Impression: Volume depletion Additional Impression: Medication side effect Condition: Stable Additional Instructions: FOLLOW-UP WITH PRIMARY CARE PROVIDER IN 1 TO 2 DAYS. TAKE MEDICATIONS DIRECTED HERE IN THE EMERGENCY ROOM. OKAY TO CONTINUE HOME MEDICATIONS UNLESS OTHERWISE DISCUSSED DURING YOUR VISIT IN THE EMERGENCY ROOM TODAY. RETURN TO YOUR NEAREST EMERGENCY ROOM IF SYMPTOMS WORSEN OR IF THERE IS NO IMPROVEMENT. CALL 911 IF YOU NEED IMMEDIATE ASSISTANCE. TAKE TYLENOL [id number] NEEDED AND IF NO CONTRAINDICATIONS ARE PRESENT. INCREASE ORAL HYDRATION. A WOUND CULTURE OR URINE CULTURE WAS ORDERED HERE IN THE EMERGENCY ROOM DEPARTMENT PLEASE FOLLOW-UP WITH PRIMARY CARE PROVIDER AND ADVISE THEM TO GET REPORTS FROM OUR FACILITY. IF YOU HAD ANY CATHY WRAP/SPLINTS THAT WERE APPLIED HERE, PLEASE DO NOT REMOVE THEM UNTIL YOU SEE YOUR PRIMARY CARE OR SPECIALTY. REFERRALS: Referrals: PARUL DOBBS (PCP) Time of Disposition: 18:46 JENNI GOMEZ MD Aug 28, 2025 18:15
[2025-08-28 18:56] VITALS: BP 144/64; PULSE 77; RESP 20; TEMP 98.3; O2SAT 96
== END 2025-08-28 19:44 | disposition home or self-care (01) ==
LOC: EDH 16:52
DX: E86.9 Volume depletion, unspecified (principal); T38.0X5A Adverse effect of glucocorticoids and synthetic analogues, initial encounter; E03.9 Hypothyroidism, unspecified; E78.00 Pure hypercholesterolemia, unspecified; I10 Essential (primary) hypertension; Z88.8 Allergy status to other drugs, medicaments and biological substances; Z88.5 Allergy status to narcotic agent; Z79.899 Other long term (current) drug therapy; Z79.01 Long term (current) use of anticoagulants; Z79.52 Long term (current) use of systemic steroids; Z79.82 Long term (current) use of aspirin; Z90.49 Acquired absence of other specified parts of digestive tract; Z90.89 Acquired absence of other organs; Y92.89 Other specified places as the place of occurrence of the external cause
CPT/HCPCS: 36415; 80048; 84484; 85025; 93005; 99284